=== PATIENT | male | born 1990 | race African-American/Black ===

== ENCOUNTER 2025-06-15 12:53 | Emergency (ER) | payer SELFPAY ==
[2025-06-15 13:54] LABS: #Basophils 0.04 10x3/uL (0.0-0.2); #Eosinophils 0.04 10x3/uL (0.0-0.7); #Monocytes 0.57 10x3/uL (0.11-0.59); #Neutrophils 5.84 10x3/uL (1.40-6.50); %Basophils 0.5 % (0.0-1.0); %Eosinophils 0.5 % (0.0-10.0); %Lymphocytes 22.5 % (21.0-51.0); %Monocytes 6.8 % (0.0-10.0); %Neutrophils 69.3 % (42.0-75.0); Hematocrit 44.2 % (42.0-52.0); Hemoglobin 14.4 g/dL (14.0-18.0); Mean Corpuscular Hemoglobin 26.3 pg (27.0-31.0); Mean Corpuscular Volume 80.7 fL (78.0-98.0); Platelet Count 318 10x3/uL (130-400); Red Blood Cell (RBC) Count 5.48 mill/uL (4.70-6.10); White Blood Cell (WBC) Count 8.41 10x3/uL (4.8-10.8)
[2025-06-15] MEDS ORDERED: Boostrix 0.5 ML (Tdap) VIAL (>/=7 yrs of age) ONE (14:01)
[2025-06-15 14:04] LABS: ALT (SGPT) Less than 7 U/L (Less than 45); AST (SGOT) 23 U/L (11-34); Albumin 4.0 g/dL (3.1-4.5); Alkaline Phosphatase 42 U/L (40-110); Anion Gap 15 mmol/L (10-20); BUN (Urea Nitrogen) 7 mg/dL (8.9-20.6); Bilirubin, Total 0.4 mg/dL (0.3-1.2); Calc. Creatinine Clearance 0 mL/min (70-130); Calcium 9.4 mg/dL (7.8-10.44); Carbon Dioxide 25 mmol/L (22-29); Chloride 103 mmol/L (98-107); Globulin 4.2 g/dL (2.4-3.5); Glucose 106 mg/dL (70-105); Potassium 3.9 mmol/L (3.5-5.1); Sodium 139 mmol/L (136-145)
[2025-06-15] MEDS ORDERED: Lidocaine 1% w/Epinephrine 1:100K 20 ML VIAL ONE (14:30)
[2025-06-15] MEDS ORDERED: Lidocaine 1% PF 5 ML VIAL ONE (14:33)
[2025-06-15] MEDS ORDERED: Cephalexin 250 MG CAP ONE (15:58)
[2025-06-15] MEDS ORDERED: Sulfameth/Trimethoprim DS 800-160mg TAB ONE (15:58)
== END 2025-06-15 16:22 | disposition home or self-care (01) ==
LOC: ERS 12:53
DX: L03.012 Cellulitis of left finger (principal); Z23 Encounter for immunization; B20 Human immunodeficiency virus [HIV] disease
CPT/HCPCS: 26011; 36415; 80053; 83605; 85025; 87070; 87077; 87186; 87205; 90471; 90715; J0665; Q0162

== ENCOUNTER 2025-06-22 19:32 | Inpatient (IN) | payer OTHER, SELFPAY ==
[2025-06-22] MEDS ORDERED: Ketorolac Tromethamine 30 MG (1 mL) VIAL ONE (22:04)
[2025-06-22] MEDS ORDERED: Ondansetron PF 4 MG/2 ML Vial ONE ×2 (22:21→23:33)
[2025-06-22 22:28] LABS: #Basophils 0.04 10x3/uL (0.0-0.2); #Eosinophils 0.06 10x3/uL (0.0-0.7); #Monocytes 0.60 10x3/uL (0.11-0.59); #Neutrophils 2.15 10x3/uL (1.40-6.50); %Basophils 0.7 % (0.0-1.0); %Eosinophils 1.0 % (0.0-10.0); %Lymphocytes 50.0 % (21.0-51.0); %Monocytes 10.4 % (0.0-10.0); %Neutrophils 37.4 % (42.0-75.0); Hematocrit 44.3 % (42.0-52.0); Hemoglobin 14.1 g/dL (14.0-18.0); Mean Corpuscular Hemoglobin 25.8 pg (27.0-31.0); Mean Corpuscular Volume 81.1 fL (78.0-98.0); Platelet Count 366 10x3/uL (130-400); Red Blood Cell (RBC) Count 5.46 mill/uL (4.70-6.10); White Blood Cell (WBC) Count 5.76 10x3/uL (4.8-10.8)
[2025-06-22 22:38] LABS: ALT (SGPT) 25 U/L (Less than 45); AST (SGOT) 21 U/L (11-34); Albumin 3.8 g/dL (3.1-4.5); Alkaline Phosphatase 48 U/L (40-110); Anion Gap 15 mmol/L (10-20); BUN (Urea Nitrogen) 13 mg/dL (8.9-20.6); Bilirubin, Total 0.2 mg/dL (0.3-1.2); Calc. Creatinine Clearance 0 mL/min (70-130); Calcium 9.3 mg/dL (7.8-10.44); Carbon Dioxide 23 mmol/L (22-29); Chloride 104 mmol/L (98-107); Globulin 4.0 g/dL (2.4-3.5); Glucose 96 mg/dL (70-105); Potassium 4.2 mmol/L (3.5-5.1); Sodium 138 mmol/L (136-145)
[2025-06-22] MEDS ORDERED: VANCOMYCIN 2 GRAM/400 ML BAG ONE (22:52)
[2025-06-23] MEDS ORDERED: Ondansetron PF 4 MG/2 ML Vial IVP PRN (01:30)
[2025-06-23 03:40] VITALS: BMI 25.0
[2025-06-23] MEDS ORDERED: Lidocaine 1% PF 5 ML VIAL ONE (12:12)
[2025-06-23] MEDS ORDERED: Glycopyrrolate 0.2 MG/ML 5 ML SYRINGE ONE ×2 (12:12→12:13)
[2025-06-23] MEDS ORDERED: Ondansetron PF 4 MG/2 ML Vial ONE (12:12)
[2025-06-23] MEDS ORDERED: PROPOFOL 200 MG/20 ML VIAL ONE (12:29)
[2025-06-23] MEDS: HYDROcodone/Acetaminophen 5/325 mg Tablet PO PRN (22:47)
[2025-06-24 10:08] VITALS: BMI 25.0
[2025-06-25 07:06] LABS: Vancomycin, Trough 11.1 ug/mL
[2025-06-25 07:08] LABS: Calc. Creatinine Clearance 108.0 mL/min (70-130)
[2025-06-25] MEDS ORDERED: Lidocaine 1% w/Epinephrine 1:100K 20 ML VIAL ONE (08:34)
[2025-06-25] MEDS ORDERED: Sodium Bicarbonate 2.5 MEQ/5 ML SDV ONE (08:34)
[2025-06-25] MEDS: Vancomycin 1.25 GM / NS 250 ML VIAL-2-BAG IVPB SCH (22:07)
[2025-06-26 06:21] LABS: #Basophils 0.04 10x3/uL (0.0-0.2); #Eosinophils 0.07 10x3/uL (0.0-0.7); #Monocytes 0.57 10x3/uL (0.11-0.59); #Neutrophils 3.29 10x3/uL (1.40-6.50); %Basophils 0.6 % (0.0-1.0); %Eosinophils 1.1 % (0.0-10.0); %Lymphocytes 38.7 % (21.0-51.0); %Monocytes 8.7 % (0.0-10.0); %Neutrophils 50.4 % (42.0-75.0); Hematocrit 40.3 % (42.0-52.0); Hemoglobin 12.9 g/dL (14.0-18.0); Mean Corpuscular Hemoglobin 25.8 pg (27.0-31.0); Mean Corpuscular Volume 80.6 fL (78.0-98.0); Platelet Count 341 10x3/uL (130-400); Red Blood Cell (RBC) Count 5.00 mill/uL (4.70-6.10); White Blood Cell (WBC) Count 6.52 10x3/uL (4.8-10.8)
[2025-06-26] MEDS ORDERED: Bacitracin Zinc Ointment 30 gm TUBE ONE (06:26)
[2025-06-26 06:43] LABS: Anion Gap 13 mmol/L (10-20); BUN (Urea Nitrogen) 8 mg/dL (8.9-20.6); Calc. Creatinine Clearance 132 mL/min (70-130); Calcium 9.1 mg/dL (7.8-10.44); Carbon Dioxide 25 mmol/L (22-29); Chloride 105 mmol/L (98-107); Glucose 100 mg/dL (70-105); Potassium 3.8 mmol/L (3.5-5.1); Sodium 139 mmol/L (136-145)
[2025-06-26] MEDS ORDERED: PROPOFOL 20 ML ONE (08:21)
[2025-06-26] MEDS ORDERED: Ondansetron PF 4 MG/2 ML Vial ONE (08:45)
[2025-06-26] MEDS ORDERED: PHENYLEPHRINE-NS 100 MCG/ML 10 ML SYRINGE ONE (08:51)
[2025-06-27 09:46] LABS: #Basophils Less than 0.03 10x3/uL (0.0-0.2); #Eosinophils 0.04 10x3/uL (0.0-0.7); #Monocytes 0.69 10x3/uL (0.11-0.59); #Neutrophils 5.61 10x3/uL (1.40-6.50); %Basophils 0.1 % (0.0-1.0); %Eosinophils 0.4 % (0.0-10.0); %Lymphocytes 32.1 % (21.0-51.0); %Monocytes 7.3 % (0.0-10.0); %Neutrophils 59.6 % (42.0-75.0); Hematocrit 42.3 % (42.0-52.0); Hemoglobin 13.2 g/dL (14.0-18.0); Mean Corpuscular Hemoglobin 25.5 pg (27.0-31.0); Mean Corpuscular Volume 81.7 fL (78.0-98.0); Platelet Count 349 10x3/uL (130-400); Red Blood Cell (RBC) Count 5.18 mill/uL (4.70-6.10); White Blood Cell (WBC) Count 9.43 10x3/uL (4.8-10.8)
[2025-06-27 09:59] LABS: Anion Gap 14 mmol/L (10-20); BUN (Urea Nitrogen) 9 mg/dL (8.9-20.6); Calc. Creatinine Clearance 122 mL/min (70-130); Calcium 9.1 mg/dL (7.8-10.44); Carbon Dioxide 21 mmol/L (22-29); Chloride 109 mmol/L (98-107); Glucose 103 mg/dL (70-105); Potassium 3.6 mmol/L (3.5-5.1); Sodium 140 mmol/L (136-145)
[2025-06-28 07:59] LABS: #Basophils 0.03 10x3/uL (0.0-0.2); #Eosinophils 0.12 10x3/uL (0.0-0.7); #Monocytes 0.51 10x3/uL (0.11-0.59); #Neutrophils 3.21 10x3/uL (1.40-6.50); %Basophils 0.5 % (0.0-1.0); %Eosinophils 1.8 % (0.0-10.0); %Lymphocytes 40.8 % (21.0-51.0); %Monocytes 7.7 % (0.0-10.0); %Neutrophils 48.4 % (42.0-75.0); Hematocrit 41.9 % (42.0-52.0); Hemoglobin 13.2 g/dL (14.0-18.0); Mean Corpuscular Hemoglobin 25.6 pg (27.0-31.0); Mean Corpuscular Volume 81.2 fL (78.0-98.0); Platelet Count 369 10x3/uL (130-400); Red Blood Cell (RBC) Count 5.16 mill/uL (4.70-6.10); White Blood Cell (WBC) Count 6.62 10x3/uL (4.8-10.8)
[2025-06-28 08:19] LABS: Anion Gap 12 mmol/L (10-20); BUN (Urea Nitrogen) 14 mg/dL (8.9-20.6); Calc. Creatinine Clearance 134 mL/min (70-130); Calcium 9.1 mg/dL (7.8-10.44); Carbon Dioxide 25 mmol/L (22-29); Chloride 107 mmol/L (98-107); Glucose 94 mg/dL (70-105); Potassium 3.9 mmol/L (3.5-5.1); Sodium 140 mmol/L (136-145)
[2025-06-28 08:20] LABS: CRP, High Sensitivity at Bryan 0.32 mg/dL (< or = 0.5)
[2025-06-30 16:41] VITALS: BP 122/84; TEMP 98.2
== END 2025-06-30 18:43 | disposition home or self-care (01) | DRG 517 ==
LOC: ERS 19:32 → SURG B 23:11 → OBSVTOIN 06-24 09:18
PROVIDERS: ADMIT Orthopaedic Surgery; ATTEND Orthopaedic Surgery
PROC: 0PBS0ZZ Excision of Left Thumb Phalanx, Open Approach (ICD-10-PCS; principal; 2025-06-23)
PROC: 3E03329 Introduction of Other Anti-infective into Peripheral Vein, Percutaneous Approach (ICD-10-PCS; 2025-06-24)
PROC: 02HV33Z Insertion of Infusion Device into Superior Vena Cava, Percutaneous Approach (ICD-10-PCS; 2025-06-25)
PROC: B5181ZA Fluoroscopy of Superior Vena Cava using Low Osmolar Contrast, Guidance (ICD-10-PCS; 2025-06-25)
PROC: 0PBS0ZZ Excision of Left Thumb Phalanx, Open Approach (ICD-10-PCS; 2025-06-26)
DX: M86.9 Osteomyelitis, unspecified (principal); Z79.899 Other long term (current) drug therapy; A49.02 Methicillin resistant Staphylococcus aureus infection, unspecified site
CPT/HCPCS: 36415; 36573; 80048; 80053; 80202; 82550; 82565; 83605; 85025; 86141; 87040; 87070; 87077; 87186; 87205; 88307; 88311; 96365; 96375; 96376; 97139; C1713; C1751; G0378; J0665; J0878; J1100; J1885; J2250; J2270; J2405; J2543; J2704; J3010; J3373; J3375; J7050